=== PATIENT | male | born 1985 | race Caucasian/White ===

== ENCOUNTER 2021-05-07 17:45 | Emergency (ER) | payer BC, OTHER ==
[~2021-05-07] VITALS: Ht 172.7 cm; Wt 72.0 kg
[2021-05-07] MEDS ORDERED: IBUP-2029 MT (19:20)
[2021-05-07] MEDS ORDERED: IBUPROFEN 800MG TABLET PO ONE (19:30)
[2021-05-07 19:47] VITALS: BP 114/73
== END 2021-05-07 20:02 | disposition home or self-care (01) ==
LOC: ER 17:45
DX: U07.1 COVID-19 (principal); Z79.899 Other long term (current) drug therapy
CPT/HCPCS: 99282